=== PATIENT | female | born 1985 | race Caucasian/White ===

== ENCOUNTER 2018-12-15 09:18 | Emergency (ER) | payer BC ==
[~2018-12-15] VITALS: Ht 170.2 cm; Wt 94.8 kg
[2018-12-15 09:27] VITALS: Ht 170.2 cm; Wt 94.8 kg
[2018-12-15] MEDS ORDERED: SODI126M NASAL (12:02)
[2018-12-15] MEDS ORDERED: GUAI120011 PO (12:02)
[2018-12-15 12:23] VITALS: BP 128/63; PULSE 87; RESP 18
--- NOTE | 2018-12-15 12:37 | ERD ---
ER Documentation Chief Complaint Chief Complaint cough, sinus congestion x 1 week HPI This is a 33-year-old female with a nonsignificant past medical history who is roughly 34 weeks who presents ED with URI-like symptoms for the past week. Patient admits to cough, congestion, runny nose, mild headache and sputum production. Denies fever, chills, headache, neck pain, nausea, vomiting, diarrhea, constipation, abdominal pain, shortness breath, trouble breathing, wheezing, chest pain, vaginal pain, vaginal bleeding, and all other symptoms. Allergy to amoxicillin. ROS All systems reviewed and are negative except as per history of present illness. Medications Home Meds Active Scripts Sodium Chloride (Saline Nasal Mist) 126 Ml Mist, 1 SPRAY NASAL Q12 PRN for NASAL CONGESTION for 5 Days, BOTTLE Prov:MAX ROSAS PA-C 12/15/18 Guaifenesin (Mucinex) 1,200 Mg Tab.er.12h, 1200 MG PO Q12 for 3 Days, TAB Prov:MAX ROSAS PA-C 12/15/18 Allergies Allergies: Coded Allergies: No Known Allergy (Unverified , 12/15/18) PMhx/Soc Medical and Surgical Hx: pt denies Medical Hx, pt denies Surgical Hx Hx Alcohol Use: Yes Hx Substance Use: No Hx Tobacco Use: No FmHx Family History: No diabetes Physical Exam Vitals Vital Signs Date Temp Pulse Resp B/P (MAP) Pulse Ox O2 O2 Flow FiO2 Time Delivery Rate 12/15/18 98.3 87 18 128/63 96 Room Air 12:23 (84) 12/15/18 98.2 98 18 132/58 96 09:27 (82) Physical Exam Physical Exam Vitals signs: Reviewed by me. General: Well developed, well nourished, in no acute distress. Patient is awake and alert. Head: Normocephalic, atraumatic. Eyes: Normal conjunctiva, Pupils PERRLA, EOM intact grossly ENT: Pharynx is clear, Moist mucous membranes, external ears, nose and mouth normal, no tonsillar adenopathy, exudate or erythema, no kissing tonsils, no uvula deviation, normal nasal mucosa with clear rhinorrhea, tympanic membrane visualized bilaterally no bulging, erythema, purulent air-fluid line seen, maxillary sinuses are nontender to percussion, Neck: Supple, no masses, lymphadenopathy or JVD Respiratory: Clear to auscultation bilaterally with no wheezing, rhonchi, rales, no distress Cardiovascular: RRR, no murmurs, rubs, or gallops Abdominal: , nontender to palpation : Deferred Neurologic: Alert and oriented, moving all extremities, normal speech, no focal weakness, no cerebellar signs. Normal mentation Skin: warm and dry, No rash Psych: Normal mood Procedures/MDM ER COURSE: The patient was stable throughout ED course. I kept the patient and/or family informed of laboratory and diagnostic imaging results throughout the emergency room course. The patient was promptly evaluated and a treatment plan was devised based on H&P and other data. This plan was discussed with the patient who agreed and had no further questions or concerns prior to discharge. MEDICAL DECISION MAKING: This is a 33-year-old female presents ED with URI-like symptoms for the past week. Patient is 35 weeks but does not have any gynecologic or gastrointestinal complaints. The patient's clinical presentation is very consistent with an URI. Patient is concerned about sinusitis but she does not have any tenderness to percussion of the maxillary sinuses. No evidence of pneumonia. The patient is well-appearing without respiratory distress. Normal oxygen saturation. X-ray imaging not indicated. No indication for Tamiflu. The patient does not exhibit any clinical signs or symptoms concerning for serious bacterial infection or systemic illness. Based on history and clinical exam findings the patient does not appear to have evidence of pneumonia, strep pharyngitis, urinary tract infection, bacteremia, sepsis, or meningitis. For these reasons I do not believe it is necessary to obtain laboratory testing or diagnostic imaging. I advised patient that she needs to follow-up with her OB specialist tomorrow morning regarding recent URI. I believe it would be ap propriate for symptom control, and close outpatient primary care follow-up. We discussed follow up with the patient's primary care doctor within 24 to 48 hours as needed. We also discussed return to the emergency room for worsening symptoms or worsening condition. DISPOSITION PLAN: We discussed follow up with the patient's primary care doctor within 24 to 48 hours. Patient counseled regarding my diagnostic impression and care plan. Prior to discharge all questions answered. Pt agrees with treatment plan and understands strict return precautions. Precautionary instructions provided including instructions to return to the ER if not improving or for any worsening or changing symptoms or concerns. SPECIALIST FOLLOW UP RECOMMENDED: None Patient has been advised to follow up with primary care in 1-2 days. Disclaimer: Inadvertent spelling and grammatical errors are likely due to E HR/dictation software use and do not reflect on the overall quality of patient care. Also, please note that the electronic time recorded on this note does not necessarily reflect the actual time of the patient encounter. Departure Diagnosis: Primary Impression: Upper respiratory infection URI type: unspecified URI Qualified Codes: J06.9 - Acute upper respiratory infection, unspecified Condition: Stable Patient Instructions: Preventing Common Respiratory Infections, Sinusitis, No Abx Referrals: [facility] YOU HAVE RECEIVED A MEDICAL SCREENING EXAM AND THE RESULTS INDICATE THAT YOU DO NOT HAVE A CONDITION THAT REQUIRES URGENT TREATMENT IN THE EMERGENCY DEPARTMENT. FURTHER EVALUATION AND TREATMENT OF YOUR CONDITION CAN WAIT UNTIL YOU ARE SEEN IN YOUR DOCTORS OFFICE WITHIN THE NEXT 1-2 DAYS. IT IS YOUR RESPONSIBILITY TO MAKE AN APPOINTMENT FOR FOLOW-UP CARE. IF YOU HAVE A PRIMARY DOCTOR --you should call your primary doctor and schedule an appointment IF YOU DO NOT HAVE A PRIMARY DOCTOR YOU CAN CALL OUR PHYSICIAN REFERRAL HOTLINE AT IF YOU CAN NOT AFFORD TO SEE A PHYSICIAN YOU CAN CHOSE FROM THE FOLLOWING [facility] [address] [facility]. [facility] [address] [facility]. [facility] [address] [facility]. [facility] [address] [facility]. [facility] [address] [facility]. [facility]. [address] Additional Instructions: Patient advised to return to the ED immediately for new or worsening symptoms. Patient advised to follow up with primary care provider in the next 24-48 hours. Patient verbalized understanding and agrees with treatment plan and course of action. If patient has no primary care they may follow up with one of the formerly [facility] clinics listed on the following page or one of the options listed below [facility] + [address] [address] or [facility] [address] [place] [address] or [facility] [address] [place] [address] MAX ROSAS PA-C Dec 15, 2018 12:37
== END 2018-12-15 12:25 | disposition home or self-care (01) ==
LOC: FTE 09:18
DX: O99.513 Diseases of the respiratory system complicating pregnancy, third trimester (principal); J06.9 Acute upper respiratory infection, unspecified; Z3A.34 34 weeks gestation of pregnancy
CPT/HCPCS: 99282

== ENCOUNTER 2018-12-15 12:56 | Outpatient (CLI) | payer BC ==
[~2018-12-15] VITALS: Ht 152.4 cm; Wt 92.0 kg
[~2018-12-15 12:56] MED LIST: GUAI120011 PO; SODI126M NASAL
[2018-12-15 13:06] VITALS: Ht 152.4 cm; Wt 92.0 kg
--- NOTE | 2018-12-15 14:28 | TRIAGE ---
OB Triage Datetime Report Generated by CPN: 12/15/2018 14:28 Datetime: 12/15/2018 14:10 Stage of : OB Triage Maternal Assessment Level of Consciousness: Fully Conscious DTR's/Clonus: DTRs 1+ Headache: Denies Nausea/Vomiting: Denies RUQ Epigastric Pain: Denies Labor Evaluation Frequency: NONE Monitor Mode: External Resting Tone Harahan: Relaxed Heart Rate FHR Baseline Rate: 135 Monitor Mode: External US Variability: Moderate 6-25 bpm Accelerations: 15X15 Decelerations: None Category: Category I Pain Assessment Pain Scale: 0 Pain Presence: None/Denies Pain Type: N/A Pain Goal: 3 Vaginal Exam Membrane Status: Intact Datetime: 12/15/2018 13:20 Maternal Assessment Level of Consciousness: Fully Conscious DTR's/Clonus: DTRs 1+ Headache: Denies Blurred Vision: No Nausea/Vomiting: Denies RUQ Epigastric Pain: Denies Facial Edema: None Labor Evaluation Frequency: NONE Monitor Mode: External Resting Tone Harahan: Relaxed Heart Rate FHR Baseline Rate: 140 Monitor Mode: External US Variability: Moderate 6-25 bpm Accelerations: 15X15 Decelerations: None Category: Category I Pain Assessment Pain Scale: 0 Pain Presence: None/Denies Pain Type: N/A Pain Goal: 3 Vaginal Exam Membrane Status: Intact Datetime: 12/15/2018 13:03 Stage of : OB Triage Datetime: 12/15/2018 13:00 Assessment Type: Triage Maternal Assessment Level of Consciousness: Fully Conscious DTR's/Clonus: DTRs 2+; No Clonus Headache: Denies Blurred Vision: No Respiratory Effort: Unlabored; Regular Rhythm; Equal Expansion Breath Sounds, Left: Clear and Equal Breath Sounds, Right: Clear and Equal Nausea/Vomiting: Denies RUQ Epigastric Pain: Denies Lower Extremities Edema: None Degree: None Upper Extremities Edema: None Degree: None Facial Edema: None Fall Risk Assessment History of Falling: (0) No Secondary Diagnosis: (0) No Ambulatory Aid: (0) Bedrest/Nurse Assist IV Therapy: (0) No Gait: (0) Normal/Bedrest/Immobile Mental Status: (0) Oriented to Own Ability Fall Score: 0 Fall Risk Score Definition: No Risk: No action required Datetime: 12/15/2018 12:45 Time of Arrival: 12/15/2018 12:45 EGA: 34.1 Arrived By: Ambulatory Arrived From: Home Chief Complaint: PT CAME IN FROM ER FOR OB CLEARANCE FOR SINUS PROBLEMS Movement: Present Contractions: Denies/Absent Additional Patient Complaints: NONE Time Provider Notified: 12/15/2018 13:03 Provider Notified: FIORDALIZA Initial Plan: NST AND P
--- NOTE | 2018-12-15 15:01 | PN ---
Triage Information Date/Time Reason for visit: Sinus infection Weeks of Gestation Patient is a 33-year-old 2 para 1 at 34 weeks and 1 day of gestation with estimated date of delivery January 25, 2019 Patient with known single umbilical artery, getting twice weekly testing Patient was seen in the emergency department for a sinus infection today and sent here to triage for obstetrical evaluation She denies any fever, she reports positive movement, denies any vaginal bleeding or leaking fluid or any uterine contractions /Para 2 para 1 Diabetes: none Hypertention: none Objective heart rate tracing category 1 Heart Rate: 140's Contractions: None Results/Medications Imaging Results PROCEDURE: OB ultrasound for biophysical profile. CLINICAL INDICATION: Biophysical profile. TECHNIQUE: Multiple sonographic images of the pelvis were obtained. Transabdominal view of the uterus are available for review. COMPARISON: 04/05/2017. FINDINGS: breathing movement = 2/2 tone = 2/2 motion = 2/2 DARON = 13 cm Single live intrauterine with cardiac activity (131 beats per minute). Presentation is transverse, maternal right. IMPRESSION: 1. Single viable intrauterine gestation. 2. Biophysical profile = 8/8. 3. DARON = 13 cm. RPTAT: EE .Mat Márquez MD, MD Date Time Electronically viewed and signed by .Mat Márquez MD, MD on 12/15/2018 14:12 .C/ CC: ELAINE MANCERA M.D. [phone] Disposition: Discharge (Sinus infection) Assessment/Plan Patient was cleared obstetrically and sent back down to the emergency department for further evaluation of sinus infection Patient is okay to take Zithromax for the sinus infection She was counseled to increase p.o. 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
== END 2018-12-15 14:15 | disposition home or self-care (01) ==
LOC: OBT 12:56 → L-D 12:56 → OBT 14:15
PROVIDERS: ATTEND Obstetrics & Gynecology
DX: O98.813 Other maternal infectious and parasitic diseases complicating pregnancy, third trimester (principal); J32.9 Chronic sinusitis, unspecified; O09.523 Supervision of elderly multigravida, third trimester; Z3A.34 34 weeks gestation of pregnancy
CPT/HCPCS: 76818; Z7500; G0463